=== PATIENT | male | born 1995 | race African-American/Black ===

== ENCOUNTER 2020-06-23 09:35 | Emergency (ER) | payer OTHER ==
[~2020-06-23] VITALS: Ht 188 cm; Wt 90.7 kg
[~2020-06-23 09:35] MED LIST: NOHOMEMEDICATIONS; PERCOCET 5-3251 EACH PO; ZYRTEC10 M2 PO
[2020-06-23 10:30] LABS: ABSOLUTE NEUTROPHILS 4.3 thou/uL (1.4-8.2); BASOPHILS 0.3 % (0.0-2.0); EOSINOPHILS 1.4 % (0.0-3.0); HEMATOCRIT 45.7 % (42.0-52.0); HEMOGLOBIN 15.3 gm/dL (14.0-18.0); MCH 28.6 pg (26.0-34.0); MCHC 33.5 g/dL (28.0-37.0); MCV 85.5 fL (80.0-100.0); MONOCYTES 4.7 % (1.0-8.0); PLATELET COUNT 179 thou/uL (150-400); POLYS 73.6 % (36.0-66.0); RBC 5.34 mil/uL (4.50-6.00); WBC 5.8 thou/uL (4.0-11.0)
[2020-06-23 10:36] LABS: ANION GAP 7 mmol/L (7-16); BUN 20 mg/dL (7-18); CHLORIDE 103 mmol/L (98-107); CO2 28 mmol/L (21-32); CREATININE 1.2 mg/dL (0.7-1.3); GLUCOSE 93 mg/dL (74-106); POTASSIUM 4.2 mmol/L (3.5-5.1); SODIUM 138 mmol/L (136-145)
[2020-06-23 10:46] LABS: ALBUMIN 4.5 g/dL (3.4-5.0); LIPASE 139 U/L (73-393); SGOT 14 U/L (15-37); SGPT 23 U/L (16-63); TOTAL BILIRUBIN 0.7 mg/dL (0.2-1.0); TOTAL PROTEIN 7.6 g/dL (6.4-8.2); TROPONIN-I <0.06 ng/mL (<0.06)
--- NOTE | 2020-06-23 12:49 | EKG ---
[place] [address] [facility] [place] [address] ELECTROCARDIOGRAM REPORT Name: KLEVER HARMON Room #: [facility]#: [id number] Admission: 06/23/20 Attend Phys: Discharge: Date of : [birth year] Report #: [id number] 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 : 1995 Requested By: Kaye Santa Order Number: [id number] MD: Kunal Eisenberg Measurements Intervals Levasy Rate: 67 P: 64 NV: 163 QRS: 70 QRSD: 88 T: 44 QT: 388 QTc: 410 Interpretive Statements Sinus rhythm J Point elev, probable normal early repol pattern Compared to ECG 08/04/2012 01:02:21 ST (T wave) deviation now present Electronically Signed On 06-23-2020 12:49:09 BILL SORTER by Kunal Eisenberg [email or web address] <ELECTRONICALLY SIGNED> By: Kunal Eisenberg MD, [facility] 06/23/20 1249 1038 Ned Eisenberg MD, FACC /EPI
[2020-06-23 14:00] VITALS: BP 112/61
== END 2020-06-23 14:00 | disposition home or self-care (01) ==
LOC: ER 09:35
PROVIDERS: Emergency Medicine
DX: R07.89 Other chest pain (principal); Z79.899 Other long term (current) drug therapy